=== PATIENT | female | born 1965 | race Caucasian/White ===

== ENCOUNTER 2018-01-17 08:41 | Day surgery (SDC) | payer MEDICAID ==
[2018-01-17] MEDS ORDERED: MIDAZOLAM HCL 5 MG/5 ML VIAL ONE (08:53)
[2018-01-17] MEDS ORDERED: DIPHENHYDRAMINE INJ 50 MG/ML VIAL ONE (08:54)
[2018-01-17] MEDS ORDERED: SIMETHICONE 40 MG/0.6 ML ML ONE (08:54)
[2018-01-17] MEDS: MEPERIDINE HCL/PF 100 MG/ML AMP ONE ×3 (10:41→10:59)
[2018-01-17] MEDS: MIDAZOLAM HCL 5 MG/5 ML VIAL ONE ×4 (10:41→10:48)
[2018-01-17 15:45] VITALS: BP_SYST 169
== END 2018-01-17 12:00 | disposition home or self-care (01) ==
LOC: SDS 08:41
PROVIDERS: ATTEND Internal Medicine Gastroenterology
DX: Z12.11 Encounter for screening for malignant neoplasm of colon (principal); K57.30 Diverticulosis of large intestine without perforation or abscess without bleeding; K64.8 Other hemorrhoids; K63.89 Other specified diseases of intestine; K29.50 Unspecified chronic gastritis without bleeding
CPT/HCPCS: 36415; 43239; 45380; 87081; 88305; 88312; 88313; J2175; J2250; J1200